=== PATIENT | male | born 1995 | race Caucasian/White ===

== ENCOUNTER 2016-12-17 00:34 | Emergency (ER) | payer BC ==
[2016-12-17] MEDS ORDERED: ASPIRIN 81 MG TABLET, CHEWABLE PO ONE (01:05)
[2016-12-17 01:16] LABS: ABSOLUTE BASOPHILS # (AUTO) 0.1 10^3/uL (0.0-0.2); ABSOLUTE EOSINOPHILS # (AUTO) 0.4 10^3/uL (0.0-0.6); ABSOLUTE LYMPHOCYTES (AUTO) 3.1 10^3/uL (0.5-4.7); ABSOLUTE NEUT (AUTO) 4.6 10^3/uL (1.7-8.2); BASOPHILS % (AUTO) 0.9 % (0-2); EOSINOPHILS % (AUTO) 4.3 % (0-6); HEMATOCRIT 43.7 % (37.9-51.0); HEMOGLOBIN 14.7 g/dL (13.5-17.0); HGB HCT DIFFERENCE 0.4; LYMPHOCYTES % (AUTO) 33.4 % (13-45); MEAN CORPUSCULAR HEMOGLOBIN 30.1 pg (27.0-33.4); MEAN CORPUSCULAR HGB CONC 33.7 g/dL (32.0-36.0); MEAN CORPUSCULAR VOLUME 89 fl (80-97); MONOCYTES % (AUTO) 11.3 % (3-13); RED BLOOD COUNT 4.89 10^6/uL (4.35-5.55); RED CELL DISTRIBUTION WIDTH 13.4 % (11.5-14.0); SEGMENTED NEUTROPHILS % (AUTO) 50.1 % (42-78); WHITE BLOOD COUNT 9.2 10^3/uL (4.0-10.5)
--- NOTE | 2016-12-17 01:25 | ER Document Report ---
ED General - General Chief Complaint: Anxiety Stated Complaint: ANXIETY Mode of Arrival: Ambulatory Information source: Patient Notes: This is a 21-year-old male with a history of anxiety and depression who presents for feeling of anxiety and palpitations when he tries to fall asleep. He states that every night for the past 1-2 weeks as soon as he lays down and fall asleep he feels like "falls off a sanya" can feel his heart skipping. At times this is associated with some shortness of breath. He had a severe episode tonight which prompted him to call EMS. Of note he denies any chest pain. He currently feels well with no complaints. Denies any fevers or chills. He states the symptoms only happen at night when he lays down. TRAVEL OUTSIDE OF THE [place] IN LAST 30 DAYS: No - Related Data Allergies/Adverse Reactions: azithromycin [From Zithromax] Allergy (Intermediate, Verified 11/20/14 19:39) rash Past Medical History - Social History Smoking Status: Current Every Day Smoker Frequency of alcohol use: Rare Drug Abuse: Marijuana Family History: Reviewed & Not Pertinent Patient has suicidal ideation: No Patient has homicidal ideation: No Neurological Medical History: Reports: Hx Migraine - Chronic migraine. Renal/ Medical History: Denies: Hx Peritoneal Dialysis Past Surgical History: Reports: Hx Appendectomy - Immunizations Hx Diphtheria, Pertussis, Tetanus Vaccination: Yes Physical Exam - Vital signs Vitals: Temp Pulse Resp BP Pulse Ox 97.9 F 56 L 16 130/83 H 98 12/17/16 00:38 12/17/16 00:38 12/17/16 00:38 12/17/16 00:38 12/17/16 00:38 Course - Re-evaluation Re-evalutation: 12/17/16 01:23 Pt's EKG was noted to be abnormal in triage and he was brought straight back to a room. EKG demonstrates ST elevation most pronounced inferiorly, but also present V2-V6. No reciprocal changes noted. Again, he denies chest pain at this time. 12/17/16 03:04 I discussed the case in the EKG with the on-call transfer table operator Dr. Del Real who was able to view the EKG as well. Dr Del Real states that the EKG is most suggestive of early repolarization changes, although pericarditis is still a possibility. He recommends 2 sets of cardiac enzymes in the ER, and if OK will see pateint in his office later today. Pt resting comfortably without symptoms at this time. First set of enzymes is normal, as are the inflammatory markers CRP and ESR. 12/17/16 04:21 Patient has been observed in the ER for several hours, noted to be sleeping comfortably. He is noted to be bradycardic as he sleeps, which is likely normal for him as he is otherwise a young healthy individual. He has had no chest pain in the ER. His inflammatory markers, CXR, and 2 sets of cardiac enzymes are all within normal limits. Dr Del Real has visualized his EKG, as documented. Patient likely has early repol and his symptoms are more from an anxiety component than a cardiac issue. This picture is not clinically consistent with acute coronary syndrome, and also is not consistent with acute pericarditis or myocarditis at this time. Pt is appropriate at this time for discharge home, and will follow up with Dr Del Real later in the office as arranged. Strict return precautions discussed. Pateint and family are comfortable with the plan, all questions answered. - Vital Signs Vital signs: Temp Pulse Resp BP Pulse Ox 97.9 F 56 L 20 116/70 97 12/17/16 00:38 12/17/16 00:38 12/17/16 02:46 12/17/16 02:46 12/17/16 02:46 - Laboratory Result Diagrams: 12/17/16 01:00 12/17/16 01:00 Laboratory results interpreted by me: 12/17/16 12/17/16 01:00 04:00 Sodium 145.2 H Chloride 108 H Creatine Kinase 313 H 246 H Salicylates < 1.0 L Acetaminophen < 10 L - Diagnostic Test Radiology reviewed: Reports reviewed - CXR: no acute cardiopulmonary process Discharge - Discharge Clinical Impression: Abnormal EKG, Anxiety Condition: Stable Disposition: HOME, SELF-CARE Instructions: Anxiety (OM) Additional Instructions: Anxiety The physician feels that some of your health problems are being caused by anxiety. Anxiety affects your health in many ways. Anxiety alone can cause palpitations, sweats, chest pains, abdominal pains, shortness of breath, and headaches. It contributes to ulcer disease, high blood pressure, irritable bowel syndrome, and has been shown to cause flare-ups of many other diseases. Anxiety is not a simple disorder to treat. If the anxiety is due to recent life stresses, you may simply need time to "work through" the changes. If the anxiety is due to an underlying unhappiness with yourself or due to psychiatric disturbance, professional help will be needed. Your physician can refer you for further help if needed. Anti-anxiety medication is occasionally given if the stress is acute or if you are having trouble sleeping. Chronic or frequent use of these medications is not a good idea because the body becomes reliant on it, preventing you from dealing with life's normal stresses. As discussed, you were observed several hours in the ER tonight secondary to some abnormalities on your EKG, and your heart enzymes and blood work have been normal. Please follow up with the transfer table operator, Dr. Del Real, later today. Call the office to be given a time to come to the clinic. You are encouraged to STOP SMOKING. You have been prescribed Hydroxyzine to take as needed for anxiety. Return to the ER for any chest pain, fever, breathing trouble, or worsening symptoms or concerns. Prescriptions: Hydroxyzine Pamoate 25 mg PO Q8H PRN #30 capsule PRN Reason: for anxiety Forms: Smoking Cessation Education
[2016-12-17 01:37] LABS: ALANINE AMINOTRANSFERASE 38 U/L (21-72); ALBUMIN 4.3 g/dL (3.5-5.0); ALCOHOL < 10 mg/dL (NONE DETECTED); ALKALINE PHOSPHATASE 69 U/L (38-126); ANION GAP 12 (5-19); ASPARTATE AMINO TRANSFERASE 28 U/L (17-59); BILIRUBIN,DIRECT 0.4 mg/dL (0.0-0.4); BILIRUBIN,TOTAL 0.7 mg/dL (0.2-1.3); BLOOD UREA NITROGEN 15 mg/dL (7-20); CALCIUM 9.5 mg/dL (8.4-10.2); CARBON DIOXIDE 25 mmol/L (22-30); CHLORIDE 108 mmol/L (98-107); CREATINE KINASE 313 U/L (55-170); CREATININE RESULT 0.97 mg/dL (0.52-1.25); GLUCOSE 87 mg/dL (75-110); POTASSIUM 4.1 mmol/L (3.6-5.0); SODIUM 145.2 mmol/L (137-145); TOTAL PROTEIN 7.3 g/dL (6.3-8.2)
[2016-12-17 01:52] LABS: CREATINE KINASE MB 1.25 ng/mL (<4.55); TROPONIN I < 0.012 ng/mL
[2016-12-17] MEDS ORDERED: HYDROXYZINE PAMOATE 25 MG CAPSULE PO ONE (02:09)
[2016-12-17 02:10] LABS: URINE BARBITURATES SCREEN NEGATIVE; URINE METHADONE SCREEN NEGATIVE; URINE OPIATES LOW NEGATIVE; URINE PHENCYCLIDINE SCREEN NEGATIVE
[2016-12-17 04:34] LABS: CREATINE KINASE MB 1.11 ng/mL (<4.55)
[2016-12-17 04:38] LABS: TROPONIN I < 0.012 ng/mL
[2016-12-17 04:53] VITALS: BP 130/77
--- NOTE | 2016-12-17 08:10 | EKG REPORT ---
SEVERITY:- ABNORMAL ECG - SINUS RHYTHM INFERIOR Q WAVES, PROBABLY NORMAL VARIATION ST ELEVATION SUGGESTS NORMAL VARIANT : Confirmed by: Samuel Posada MD 17-Dec-2016 08:10:05
== END 2016-12-17 04:53 | disposition home or self-care (01) ==
LOC: ER 00:34
DX: F41.9 Anxiety disorder, unspecified (principal); R94.31 Abnormal electrocardiogram [ECG] [EKG]; R00.2 Palpitations; F17.200 Nicotine dependence, unspecified, uncomplicated; Z88.3 Allergy status to other anti-infective agents
CPT/HCPCS: 36415; 71010; 80053; 80307; 82550; 82553; 84443; 84484; 85025; 85379; 85652; 86140; 93005; 93010; 99284

== ENCOUNTER 2017-04-20 11:41 | Emergency (ER) | payer BC ==
[2017-04-20 11:46] VITALS: BP 133/71
--- NOTE | 2017-04-20 12:01 | ER Document Report ---
HPI - HPI Patient complains to provider of: toothache Pain Level: 5 Context: 22 yo male c/o pain to left lower jaw since last night. pt reports his wisdom teeth are coming in and causing pain and swelling. Associated Symptoms: None Exacerbated by: Food Relieved by: Denies Similar symptoms previously: Yes Recently seen / treated by doctor: No - ROS Systems Reviewed and Negative: Yes All other systems reviewed and negative - DERM Skin Color: Normal Past Medical History - General Information source: Patient - Social History Smoking Status: Current Every Day Smoker Frequency of alcohol use: Social Lives with: Family Family History: Reviewed & Not Pertinent Patient has suicidal ideation: No Patient has homicidal ideation: No - Medical History Medical History: Negative Neurological Medical History: Reports: Hx Migraine - Chronic migraine. Renal/ Medical History: Denies: Hx Peritoneal Dialysis Past Surgical History: Reports: Hx Appendectomy - Immunizations Hx Diphtheria, Pertussis, Tetanus Vaccination: Yes Vertical Provider Document - CONSTITUTIONAL Agree With Documented VS: Yes Exam Limitations: No Limitations General Appearance: WD/WN, No Apparent Distress - INFECTION CONTROL TRAVEL OUTSIDE OF THE [place] IN LAST 30 DAYS: No - HEENT HEENT: Atraumatic, PERRLA Mouth Diagram: 1 - pain Notes: no gingival edema or abscess identified - NECK Neck: Normal Inspection, Supple - RESPIRATORY Respiratory: Breath Sounds Normal, No Respiratory Distress O2 Sat by Pulse Oximetry: 99 - CARDIOVASCULAR Cardiovascular: Regular Rate, Regular Rhythm - NEURO Level of Consciousness: Awake, Alert, Appropriate - DERM Integumentary: Warm, Dry Course - Vital Signs Vital signs: Temp Pulse Resp BP Pulse Ox 98.9 F 63 18 133/71 H 99 04/20/17 11:46 04/20/17 11:46 04/20/17 11:46 04/20/17 11:46 04/20/17 11:46 Discharge - Discharge Clinical Impression: Pain, dental Condition: Stable Disposition: HOME, SELF-CARE Instructions: Penicillin V K ([facility]), Toothache (OM), Ibuprofen (General) ([facility]) Additional Instructions: Take medications as prescribed A referral for [facility] has been sent for you. Our department store general manager will contact you to schedule your appointment Prescriptions: Ibuprofen [Motrin 800 Mg Tablet] 800 mg PO Q6H #20 tablet Penicillin V Potassium [Penicillin Vk 500 mg Tablet] 500 mg PO BID #20 tablet Forms: Return to Work
== END 2017-04-20 12:20 | disposition home or self-care (01) ==
LOC: ER 11:41
DX: K08.89 Other specified disorders of teeth and supporting structures (principal); R68.84 Jaw pain; R22.0 Localized swelling, mass and lump, head; F17.200 Nicotine dependence, unspecified, uncomplicated
CPT/HCPCS: 99282